=== PATIENT | male | born 1995 | race Two or more races ===

== ENCOUNTER 2024-06-19 21:38 | Emergency (ER) | payer MEDICAID, SELFPAY ==
[2024-06-19 21:40] VITALS: BMI 29.9
[2024-06-19 23:10] VITALS: BP 133/89; PULSE 91; RESP 18; TEMP 37.1; O2SAT 98
--- NOTE | 2024-06-19 23:39 | EDNOTE_ITS ---
Upper Respiratory Inf. RME/HPI General Chief Complaint: Dental/Oral/Throat Stated Complaint: THROAT PAIN, HEADACHE Time Seen by Provider: 06/19/24 23:27 Source: patient Arrival date/time: 06/19/24 21:38 28-year-old male presents emergency department complaining of sore throat, cough, and headache since yesterday. Mode of arrival: ambulatory Limitations: no limitations Related Data Previous Rx's ?Medication ?Instructions ?Recorded ibuprofen 600 mg tablet 600 mg PO Q8H PRN pain #20 t abs 06/20/24 penicillin V potassium 500 mg 500 mg PO BID 10 days #2 0 tabs 06/20/24 tablet Allergies Allergy/AdvReac Type Severity Reaction Status Date / Time No Known Drug Allergies Allergy Unknown Verified 06/19/24 21:39 Review of Systems Review of Systems Systems Reviewed: All systems reviewed, normal except as documented Constitutional Constitutional: Reports system reviewed and no additional complaints, except as documented, Denies body ache(s), Denies chills, Denies fever(s) and Reports headache(s) Eyes Eyes: Reports system reviewed and no additional complaints, except as documented and Denies change in vision ENT Ears, Nose, Mouth, and Throat: Reports system reviewed and no additional complaints, except as documented, Denies disequilibrium, Denies dizziness, Reports headache(s), Reports sore throat and Denies vertigo Cardiovascular Cardiovascular: Reports system reviewed and no additional complaints, except as documented, Denies chest pain and Denies dyspnea Respiratory Respiratory: Reports system reviewed and no additional complaints, except as documented, Denies chest congestion, Reports cough and Denies dyspnea Gastrointestinal Gastrointestinal: Reports system reviewed and no additional complaints, except as documented, Denies abdominal pain, Denies nausea and Denies vomiting Musculoskeletal Musculoskeletal: Reports system reviewed and no additional complaints, except as documented, Denies abnormal gait and Denies arthralgias Integumentary/Breasts Skin/Breast: Reports system reviewed and no additional complaints, except as documented, Denies erythema, Denies rash and Denies wounds Neurologic Neurologic: Reports system reviewed and no additional complaints, except as documented, Denies abnormal gait, Denies disequilibrium, Denies dizziness, Reports headache(s) and Denies vertigo Past Medical History Social History SMOKING STATUS: Never smoker ED Exam General Limitations: Present no limitations General appearance: Present alert and in no apparent distress Head Head exam: Present atraumatic Eye Eye exam: Present normal appearance, PERRL and EOMI ENT ENT exam: Present normal exam, normal oropharynx and mucous membranes moist Expanded ENT Exam Throat exam: Present tonsillar erythema; Absent tonsillomegaly, tonsillar exudate or muffled voice Neck Neck exam: Present normal inspection, full ROM and trachea midline Chest Chest inspection: Present normal inspection and symmetric chest wall rise Respiratory Respiratory exam: Present normal lung sounds bilaterally Cardiovascular Cardiovascular exam: Present regular rate, normal rhythm and normal heart sounds Abdominal Exam Abdominal exam: Present soft and normal bowel sounds Extremities Exam Extremities exam: Present normal inspection and full ROM Back Exam Back exam: Present normal inspection and full ROM Neurological Exam Neurological exam: Present alert, oriented X3 and CN II-XII intact Psychiatric Psychiatric exam: Present normal affect and normal mood Skin Skin exam: Present warm, dry, intact and normal color Course Quality Measures none Orders Category Date Time Status Bedside Influenza A&B Antigen Test NOW Care 06/19/24 23:38 Completed Strep A Rapid Stat Lab 06/19/24 23:40 Completed Acetaminophen Tab [Tylenol ES Tab] Med 06/19/24 23:38 Discontinued 1,000 mg PO X1 ONE Ibuprofen Tab [Motrin Tab] Med 06/19/24 23:38 Discontinued 600 mg PO X1 ONE Penicillin Vk [Pen Vk] Med 06/20/24 01:21 Discontinued 500 mg PO X1 ONE Vital Signs Vital signs: Vital Signs Temperature 98.8 F 06/19/24 23:10 Pulse Rate 91 06/19/24 23:10 Respiratory Rate 18 06/19/24 23:10 Blood Pressure 133/89 H 06/19/24 23:10 Pulse Oximetry (%) 98 06/19/24 23:10 Oxygen Delivery Method Room Air 06/19/24 23:10 98% room air within normal limits Upper Respiratory Infection MDM Narrative MDM Narrative:: 28-year-old male presents emergency department complaining of sore throat, cough, and headache since yesterday. Patient appears nontoxic and is hemodynamically stable. Influenza positive. Strep swab positive. No adventitious lung sounds on auscultation. Patient treated with antibiotics for acute streptococcal pharyngitis. Instructed patient to follow-up with primary care provider return to emergency department for any worsening symptoms or as needed. Patient data External records reviewed:: None Clinical information provided by:: patient Social determinants that could affect healthcare access:: none Patient has the following chronic illnesses:: None How is presenting disease/condition affected by chronic disease/condition?: no chronic disease Evaluation data The following diagnostics were reviewed and interpreted by me:: lab results Lab and/or radiology exams considered but not ordered:: Ordered Interpretation Summary: Interpreted by me Medications / Prescriptions Medications or Prescriptions considered but not ordered:: Ordered Medication administrations:: Medication Administration History Discontinued Medications Acetaminophen (Acetaminophen 500 Mg Tablet) 1,000 mg PO X1 ONE Stop: 06/19/24 23:39 Last Admin: 06/20/24 00:14 Dose: 1,000 mg Documented By: KF Ibuprofen (Ibuprofen Tab 600 Mg Tablet) 600 mg PO X1 ONE Stop: 06/19/24 23:39 Last Admin: 06/20/24 00:13 Dose: 600 mg Documented By: KF Penicillin V Potassium (Penicillin Vk 250 Mg Tablet) 500 mg PO X1 ONE Stop: 06/20/24 01:22 Last Admin: 06/20/24 01:28 Dose: 500 mg Documented By: KG Given Consultations Consultation(s) initiated? (list below): No Diagnosis Upper Respiratory Differential Diagnosis: upper respiratory infection, otitis media, sinusitis, viral infection, bronchitis, influenza and pharyngitis Most likely diagnosis given after review of the tests above:: Acute streptococcal pharyngitis Influenza Admission Indicated Admission indicated?: not indicated Admission Request Was there a request for admission?: No Disposition Plan Disposition Plan: Discharge Discharge Attestation Discharge Attestation: The patient and all family members were given an opportunity to ask questions and understood the discharge instructions. Discharge instructions specifically effects, indications for sooner follow up or return to the emergency department, and the expected course of current diagnosis. Patient condition: Stable Discharge Plan Plan Patient Disposition: HOME (Self Care) Disposition Comment: Stable Prescriptions/Referrals Prescriptions/Med Rec: New penicillin V potassium 500 mg tablet 500 mg PO BID 10 Days Qty: 20 0RF ibuprofen 600 mg tablet 600 mg PO Q8H PRN (Reason: pain) Qty: 20 0RF Referrals: No Primary/Family,Physician [Primary Care Provider] - In 1 week Problem List Clinical Impression: Acute streptococcal pharyngitis, Influenza Patient/Caregiver Discharge Instructions Discharge Activity: activity as tolerated Education Materials: ED Influenza (Adult), ED Pharyngitis, Strep (Confirmed) Additional Instructions: Drink plenty of fluids and get plenty of rest. Take antibiotics as prescribed and complete them. Follow-up with primary care provider in 2 to 3 days. Return to emergency department for any worsening symptoms or as needed. 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 Giron
[2024-06-20] MEDS: IBUPROFEN TAB 600 MG TABLET PO (00:13)
[2024-06-20] MEDS: ACETAMINOPHEN 500 MG TABLET 1000 MG PO (00:14)
[2024-06-20 01:10] LABS: Strep A Rapid Positive (Negative)
[2024-06-20] MEDS: PENICILLIN VK 250 MG TABLET 500 MG PO (01:28)
[2024-06-20 01:52] VITALS: PULSE 63; RESP 18; TEMP 36.9; O2SAT 100
== END 2024-06-20 01:31 | disposition home or self-care (01) ==
PROVIDERS: Emergency Provider Emergency Medicine
DX: J02.0 Streptococcal pharyngitis (principal); J11.1 Influenza due to unidentified influenza virus with other respiratory manifestations
CPT/HCPCS: 87400; 87651; 99283; A9270